=== PATIENT | male | born 1970 | race Caucasian/White ===

== ENCOUNTER 2016-12-29 11:54 | Emergency (ER) | payer MEDICAID ==
[2009-10-07 12:43] VITALS: BMI 36.9
== END 2016-12-29 13:28 | disposition home or self-care (01) ==
LOC: D.ER 11:54
DX: M54.5 Low back pain (principal); I10 Essential (primary) hypertension

== ENCOUNTER 2018-02-16 20:43 | Emergency (ER) | payer MEDICAID ==
[~2018-02-16] VITALS: Ht 180.3 cm; Wt 83.2 kg
[2018-02-16 21:07] VITALS: BP 148/81; Ht 180.3 cm; Wt 83.2 kg
== END 2018-02-17 | disposition left against medical advice (07) ==
LOC: D.ER 20:43
DX: R07.9 Chest pain, unspecified (principal)

== ENCOUNTER 2018-03-09 08:27 | Emergency (ER) | payer MEDICAID ==
[~2018-03-09] VITALS: Ht 180.3 cm; Wt 87.7 kg
[2018-03-09 08:29] VITALS: Ht 180.3 cm; Wt 87.7 kg
[2018-03-09] MEDS ORDERED: ANAPROX DS550 MG PO (08:50)
[2018-03-09] MEDS ORDERED: NORCO 7.5/325 T1 TA1 PO (08:50)
[2018-03-09 10:08] VITALS: BP 122/80
== END 2018-03-09 10:09 | disposition home or self-care (01) ==
LOC: D.ER 08:27
DX: M94.0 Chondrocostal junction syndrome [Tietze] (principal); S29.012A Strain of muscle and tendon of back wall of thorax, initial encounter; V43.52XA Car driver injured in collision with other type car in traffic accident, initial encounter; Y93.89 Activity, other specified; Y92.410 Unspecified street and highway as the place of occurrence of the external cause; M54.2 Cervicalgia; F17.200 Nicotine dependence, unspecified, uncomplicated